=== PATIENT | male | born 1945 | race Caucasian/White ===

== ENCOUNTER → 2023-07-21 13:54 | Outpatient (REF) | payer SELFPAY ==
[2023-07-21 20:09] LABS: Urine Albumin Negative (Neg - Trace); Urine Bilirubin 1+ (Negative); Urine Character Clear (Clear); Urine Color Yellow; Urine Glucose Trace (Negative); Urine Ketone Negative (Negative); Urine Leukocyte Trace (Negative); Urine Nitrite Negative (Negative); Urine Occult Blood Negative (Negative); Urine Urobilinogen Negative (Neg - 1+)
[2023-07-21 20:16] LABS: Urine Amorphous Seen; Urine Calcium Oxalate Crystals Present; Urine Red Blood Cell None Seen /HPF (0-2); Urine Squamous Cell 0-2 /LPF (Few)
== END ==
LOC: OLABMERCHI 13:54
PROVIDERS: ATTENDING PHYSICIAN Nurse Practitioner Gerontology
DX: N39.0 Urinary tract infection, site not specified (principal)
CPT/HCPCS: 81003; 81015

== ENCOUNTER → 2024-06-14 10:08 | Outpatient (REF) | payer MEDICARE, SELFPAY ==
[2024-06-14 11:48] LABS: % Basophils 0.7 % (0-2); % Eosinophils 4.1 % (0-6); % Immature Granulocytes 0.5 % (0-0.5); % Lymphocytes 22.9 % (20.5-51.1); % Monocytes 10.3 % (1.7-9.3); % Neutrophils 61.5 % (42.2-75.2); Absolute Basophils 0.1 10^3/uL (0-0.2); Absolute Eosinophils 0.4 10^3/uL (0-0.7); Absolute Immature Granulocytes 0.1 10^3/uL (0-0.05); Absolute Lymphocytes 2.2 10^3/uL (1.2-3.4); Absolute Neutrophils 5.9 10^3/uL (1.4-6.5); Hematocrit 22.9 % (39.0-52.0); Hemoglobin 6.5 g/dL (13.0-18.0); Mean Corp Hgb Conc. 28.4 g/dL (33.0-37.0); Mean Corpuscular Hgb 22.8 pg (27.0-31.0); Mean Corpuscular Volume 80.4 fL (80.0-94.0); Mean Platelet Volume 11.2 fL (7.4-10.4); Nucleated Red Blood Cells % 0.2 % (-); Platelet Count 356 10^3/uL (130-400); Red Blood Cell Count 2.85 10^6/uL (4.70-6.10); Red Cell Dist. Width 17.8 % (11.5-14.5); White Blood Cell Count 9.6 10^3/uL (4.8-10.8)
[2024-06-14 11:51] LABS: ALT (SGPT) 17 U/L (0-50); AST (SGOT) 23 U/L (17-59); Albumin 3.3 g/dl (3.5-5.0); Alkaline Phosphatase 200 U/L (38-126); Blood Urea Nitrogen 20 mg/dl (9-20); Calcium 8.2 mg/dl (8.4-10.2); Carbon Dioxide 25 mmol/L (22-30); Chloride 106 mmol/L (98-107); Glucose 105 mg/dl (70-99); HDL Cholesterol 29 mg/dl; LDL Cholesterol, Calculated 54 mg/dl; Potassium 4.2 mmol/L (3.5-5.1); Sodium 138 mmol/L (135-145); Total Bilirubin 0.6 mg/dl (0.2-1.3); Total Cholesterol 105 mg/dl (50-199); Total Protein 5.7 g/dl (6.3-8.2); Triglyceride 112 mg/dl (10-149); Very Low Density Lipoprotein 22 mg/dl (0-30); eGFR > 60.00
[2024-06-14 12:08] LABS: Acanthocytes 1+; Anisocytosis 1+; Hypochromasia 1+; Normal RBC Morphology No; Ovalocytes 1+; Polychromasia 1+
[2024-06-14 12:09] LABS: Vitamin D, 25-OH*** 16.5 ng/mL (30-80)
[2024-06-14 12:22] LABS: PSA, Total - Screen 1.22 ng/ml (0.0-4.0); TSH 1.42 uIU/ml (0.47-4.68)
[2024-06-14 12:42] LABS: Vitamin B12 294 pg/ml (239-931)
[2024-06-14 13:34] LABS: Glycohemoglobin (HgbA1c) 6.5 % (4.0-5.6)
== END ==
LOC: OLABMERCHI 10:08
PROVIDERS: ATTENDING PHYSICIAN Hospitalist
DX: E11.9 Type 2 diabetes mellitus without complications (principal); I10 Essential (primary) hypertension; I25.119 Atherosclerotic heart disease of native coronary artery with unspecified angina pectoris; Z12.5 Encounter for screening for malignant neoplasm of prostate
CPT/HCPCS: 36415; 80053; 80061; 82306; 82607; 83036; 84443; 85025; G0103

== ENCOUNTER 2024-06-14 22:06 | Inpatient (IN) | payer MEDICARE, SELFPAY ==
[2024-06-14 17:48] VITALS: BP 127/58
[2024-06-14 18:02] LABS: % Basophils 0.7 % (0-2); % Eosinophils 2.8 % (0-6); % Immature Granulocytes 0.3 % (0-0.5); % Lymphocytes 22.6 % (20.5-51.1); % Monocytes 10.3 % (1.7-9.3); % Neutrophils 63.3 % (42.2-75.2); Absolute Basophils 0.1 10^3/uL (0-0.2); Absolute Eosinophils 0.3 10^3/uL (0-0.7); Absolute Lymphocytes 2.1 10^3/uL (1.2-3.4); Absolute Neutrophils 5.8 10^3/uL (1.4-6.5); Hematocrit 24.1 % (39.0-52.0); Hemoglobin 7.1 g/dL (13.0-18.0); Mean Corp Hgb Conc. 29.5 g/dL (33.0-37.0); Nucleated Red Blood Cells % 0.2 % (-); Platelet Count 384 10^3/uL (130-400); Red Blood Cell Count 3.09 10^6/uL (4.70-6.10); Red Cell Dist. Width 17.8 % (11.5-14.5); White Blood Cell Count 9.2 10^3/uL (4.8-10.8)
[2024-06-14 18:24] LABS: ALT (SGPT) 24 U/L (0-50); AST (SGOT) 33 U/L (17-59); Albumin 3.7 g/dl (3.5-5.0); Alkaline Phosphatase 192 U/L (38-126); Blood Urea Nitrogen 17 mg/dl (9-20); Calcium 8.5 mg/dl (8.4-10.2); Carbon Dioxide 22 mmol/L (22-30); Chloride 106 mmol/L (98-107); Glucose 140 mg/dl (70-99); Potassium 3.8 mmol/L (3.5-5.1); Sodium 139 mmol/L (135-145); Total Bilirubin 0.7 mg/dl (0.2-1.3); Total Protein 6.3 g/dl (6.3-8.2); eGFR > 60.00
--- NOTE | 2024-06-14 20:26 | ED.GENMED ---
History of Present Illness
General
Chief Complaint: Abnormal Lab Value
Source: patient, family (Son states he has no history of anemia) and ambulance crew
Exam Limitations: dementia
Time Seen by Provider: 06/14/24 19:33
Nursing documentation reviewed up to this point in time: agreed with
History of Present Illness
History of Present Illness:
79-year-old male presents Emergency Department due to low hemoglobin, which she has never had before. He takes eliquis for atrial fibrillation.
Past History
Past History
ED Past Medical History: Arrthythmia, CAD, HTN and Hypercholesterolemia
ED Past Surgical History: Cardiac (CABG)
Social History
Tobacco: Non-smoker
Alcohol: None
Drug: None
Living: long-term
Review of Systems
Review of Systems
Allergies reviewed?: Yes
All Other Systems: Not applicable
Constitutional: Reports fatigue
EENT: Reports no symptoms
Respiratory: Reports no symptoms
Cardiac: Reports no symptoms
ABD/GI: Reports no symptoms
: Reports no symptoms
Musculoskeletal: Reports no symptoms
Skin: Reports no symptoms
Neurological: Reports dizzy
Endocrine: Reports no symptoms
Hematologic/Lymphatic: Reports no symptoms
Psychiatric: Reports no symptoms
Phy Exam
Physical Exam
Physical Exam:
Physical Exam
General: no apparent distress, not acutely ill
Neck: supple. no meningeal signs. normal posterior pharynx
Heart: s1/s2 regular rate and rhythm, no murmur. equal radial
pulses.
HEENT: Pupils equal round reactive to light, EOMI, pale oral mucosa, pale conjunctiva
Lungs: no acute respiratory distress. clear bilaterally
Abdomen: normal bowel sounds. not tender. no CVAT
Rectal exam: Dark guaiac positive stool
Neuro: alert and oriented to person place. no focal neurological deficits cranial nerves II through XII intact
Skin: no rash
Psychiatric: well kept. interactive and cooperative
Extremities: no edema. no calf tenderness. negative homans. good distal pulses
Course
Orders/Labs/Results
Orders:
Orders
06/14/24 Dinner
NPO
Allow oral meds: Yes
Allow clear liquids: No
06/14/24 17:53
Type+Screen Urgent
Complete Blood Count/With Diff Urgent
Comprehensive Metabolic Panel Urgent
06/14/24 20:29
ABO2 Urgent
BBK Wristband Number:
Associate notified that ABO2 has been ordered: [id number]
Date: 06/14/24
Time: 18:12
Juvenile Justice Specialist ID: [id number]
06/14/24 20:31
Blood Bank Products [* Blood Bank Products] Urgent
's Orders: 1 unit prbc
Blood Bank Products: *Packed RBC Leuko(PRBC's)
Quantity: 1
Transfuse Today: Yes
Reason: Bleeding
Pantoprazole [Protonix IV] 80 mg IV NOW STA
06/14/24 21:26
Admit/Transfer Patient As Directed
Co-Sign Provider:
Level of Care: Inpatient admission
Assign to:: Telemetry
Physician / Group: Eliel Lloyd
Diagnosis: GI bleed
Reason for Telemetry: Arrhythmia
Date to Stop Telemetry: 06/17/24
Time to Stop Telemetry: 11:00
Reason for Hospitalization: GI bleed
Expected length of stay greater than two midnights?: Yes
ELOS- Estimated Length of Stay in days: 3
I certify the patient meets the requirements for IP care: Yes
PRN Pain Medication Management As Directed
May give lesser potent ordered pain med per pt: Yes
preference::
Protocol:: Medication orders for pain may be administered in a
manner that supports deferring to patient preference
when the pt is:
- Requesting an ordered lesser potent pain medication.
Least to most potent pain medications are defined
as: acetaminophen < NSAID < tramadol < opioids
(morphine, oxycodone, hydromorphone).
- Requesting a lesser dose of the same medication IF
ORDERED.
- Requesting a less intrusive route of administration
if both routes are prescribed by the provider (PO <
IV).
06/14/24 21:27
Code Status As Directed
Resuscitation Status: Full Code
06/14/24 22:34
H&H Q6H
Acetaminophen [Tylenol] 650 mg PO Q4HPRN PRN
Atorvastatin [Lipitor] 40 mg PO HS
Escitalopram Oxalate [Lexapro] 15 mg PO HS
06/14/24 22:34
Activity As Directed
Activity Level: Out of Bed-Early Mobility
INT (Intravenous Needle Therapy) As Directed
Comment: Place 2 IV catheters of the largest bore possible until stable
Orthostatic Vital Signs As Directed
Orthostatic VS Frequency: Now
Comment: then every four hours for twenty-four hours
Pneumatic Compression Sleeves As Directed
Type: Knee high
Vital Signs As Directed
Frequency: Per unit guidelines
DX Deep Vein Thrombosis Video Routine
06/15/24 04:34
H&H Q6H
06/15/24 06:00
Basic Metabolic Panel IN AM
Complete Blood Count/No Diff IN AM
06/15/24 08:00
Metoprolol Xl [Toprol Xl] 25 mg PO DAILY
Pantoprazole [Protonix IV] 40 mg IV BID
06/15/24 10:34
H&H Q6H
06/17/24 11:00
DC Protocol for Telemetry ONCE
Abnormal Lab Results
06/14/24
17:53
RBC 3.09 L 10^6/uL
(4.70-6.10)
Hgb 7.1 L g/dL
(13.0-18.0)
Hct 24.1 L %
(39.0-52.0)
MCV 78.0 L fL
(80.0-94.0)
MCH 23.0 L pg
(27.0-31.0)
MCHC 29.5 L g/dL
(33.0-37.0)
RDW 17.8 H %
(11.5-14.5)
Absolute Monos (auto) 1.0 H 10^3/uL
(0.1-0.6)
Monocytes % 10.3 H %
(1.7-9.3)
Glucose 140 H mg/dl
(70-99)
Alkaline Phosphatase 192 H U/L
(38-126)
Crossmatch IS Only See Detail
06/14/24 17:53
06/14/24 17:53
Vital Signs
Initial and Last Documented VS:
Initial Vital Signs
Temp Pulse Resp BP Pulse Ox
97.8 F 62 18 127/58 99
06/14/24 17:48 06/14/24 17:48 06/14/24 17:48 06/14/24 17:48 06/14/24 17:48
Last Documented Vital Signs
Temp Pulse Resp BP Pulse Ox
97.8 F 62 16 127/58 92
06/14/24 17:48 06/14/24 22:15 06/14/24 22:15 06/14/24 17:48 06/14/24 22:15
MDM/Problems Addressed
Differential Diagnosis Includes:
Anemia, GI bleed
MDM/Problems Addressed:
79-year-old male with GI bleed, unclear if upper versus lower, suspect upper. 1 unit of packed red blood cells ordered. IV Protonix given. Admit to hospitalist.
Chronic conditions affecting care: CAD and Arrhythmia
Acute Exacerbation and/or Progression of Chronic Illness: Arrhythmia
*Pulse Oximetry
Patient hypoxic: no
*Critical Care Note
Total Time (30-74mins, 75-104mins- exclusive of procedures): 30
comment:
Critical care statement: A total of 30 minutes of critical care time was provided for this patient. This includes management of unstable vital signs, evaluation of the patient at bedside, reviewing the patient's pertinent medical records, discussion
with consultants, review of old EKGs and review of pertinent medical records. This time with separate from time utilized to perform the aforementioned documented procedures
Patient Management
Social determinants of health affecting care: Living situation and Strong social support
Discussion with other providers: Hospitalist
Escalation/DeEscalation of care consider admission/obs:
Admit indicated
ED Attending Note
-
Portions of this chart may have been created with voice recognition software.� Occasional wrong word or��sound alike� substitutions may have occurred due to the inherent limitations of voice recognition software.
Discharge Plan
Departure
Patient Disposition: Admit
Date of Disposition: 06/14/24
Time of Disposition: 20:29
Admit to: Telemetry
Presentation/result/management discussed w/ accepting MD/DO: Hospitalist
Patient with high blood pressure during this ER visit?: Yes
Condition: Fair
Discharge Problem:
Acute GI bleeding
Interventions
Interventions:
*Risk Screen - Suicide Last Done: 06/14/24 17:48
*General Assessment Last Done: 06/14/24 17:45
*Neglect/Abuse Screening Last Done: 06/14/24 17:48
*Nursing Disposition Last Done: 06/14/24 22:21
Discharge Date and Time
Discharge Date/Time: 06/14/24 22:21
--- NOTE | 2024-06-14 20:45 | HPS.HSE ---
Addendum entered and electronically signed by Eliel Lloyd DO 06/14/24 22:50:
Patient seen and examined independently. Agree with findings and plan as set forth by DEBI Zayas.
Patient is an 79y M with PMH significant for ASCVD, hypertension and dementia who presents to ED for evaluation of anemia. Patient had routine labs done this AM and was called and advised that his Hgb was low and to report to the ED for
evaluation. History obtained from patient and his son in the ED. Patient denies any current complaints including SOB, dizziness, abdominal pain, N/V/D, etc. Patient did apparently have some issues with lightheadedness and low BP in the past few
weeks and his BP medication regimen was adjusted as a result. He states that he has been feeling better since that time.
Ass:
Subacute Blood Loss Anemia
Heme Positive Stools
Benign Hypertension
ASCVD
Paroxysmal Atrial Fibrillation
Senile Dementia
Plan:
Admit for further evaluation and treatment.
PRBCs transfusion ordered in the ED.
Follow for improvement in H&H.
GI evaluation for possible endoscopic examination.
IV PPI.
Monitor for any evidence of gross bleeding.
Hold Eliquis (last dose AM).
Original Note:
Family Physician
-
Family Physician: Ashwini Sanchez, DO
Chief Complaint
-
abnormal lab values
History of Present Illness
Patient is a 79-year-old male with past medical history significant for ASCVD, essential hypertension, hyperlipidemia, cognitive disorder and atrial fibrillation who presented to [facility] ED for evaluation of abnormal out patient labs. Patient resides
at [facility] and had routine lab work showing a hgb 6.5 this morning, facility transferred patient to ED for evaluation and treatment. Patient is poor historian, son at bedside assisting with HPI. Patient reports generally he is well able to walk
independently and complete ADLs. Patient does report having episodes of dizziness when standing and walking intermittently recently had irbesartan discontinued for low blood pressure. Patient does not recall having any recent dark stools. He denies
any recent illness, cough, fever, chills, chest pain, cough, nausea, vomiting, constipation, diarrhea or urinary symptoms.
Medical History
Past Medical History
Past Medical History: Reports Other
Additional Past Medical History:
ASCVD
essential hypertension
hyperlipidemia
cognitive disorder
atrial fibrillation
Past Surgical History: Reports Other
Additional Past Surgical History:
ACL repair
cardiac stents
cholecystectomy
Social History
Tobacco: Non-smoker
Living: Assisted Living ([facility])
Family History
Family History: Other (Father: CAD; Mother: Alzheimer's and TB)
Allergies / Home Medications
Allergies reflects when Allergies were last updated in [employer].
Home Medications with original date entered in [employer]
Allergy/Medication List:
Allergies
Allergy/AdvReac Type Severity Reaction Status Date / Time
Sulfa (Sulfonamide Allergy Unknown Verified 06/14/24 17:45
Antibiotics)
Home Medications
acetaminophen 325 mg tablet 650 mg PO Q4HPRN PRN mild pain 06/14/24
apixaban 5 mg tablet (Eliquis) 5 mg PO BID 06/14/24
atorvastatin 40 mg tablet 40 mg PO HS 06/14/24
escitalopram oxalate 10 mg tablet 15 mg PO HS 06/14/24
metoprolol succinate 25 mg tablet,extended release 24 hr 25 mg PO DAILY 06/14/24
omeprazole 20 mg capsule,delayed release 20 mg PO DAILY 06/14/24
Review of Systems
-
History Source: Patient and Family
Constitutional: Reports Other (abnormal out patient labs )
EENT: Reports No Symptoms
Respiratory: Reports No Symptoms
Cardiac: Reports No Symptoms
Abdomen/GI: Reports No Symptoms
: Reports No Symptoms
Musculoskeletal: Reports No Symptoms
Skin: Reports No Symptoms
Neurological: Reports No Symptoms
Endocrine: Reports No Symptoms
Hematologic/Lymphatic: Reports No Symptoms
Psych: Reports No Symptoms
Physical Exam
Vital Signs
Vital Signs
Temp Pulse Resp BP Pulse Ox
97.8 F 62 18 127/58 99
06/14/24 17:48 06/14/24 17:48 06/14/24 17:48 06/14/24 17:48 06/14/24 17:48
Physical Exam
General: Well Developed, Well Nourished, No Apparent Distress, Comfortable, Conversant and Appears Chronically Ill
HEENT: NormoCephalic, Moist mucous membranes, Atraumatic, Nose Appears Normal, Ears Appear Normal and Hearing Impaired
Respiratory: Clear
Cardiac: S1/S2 and Regular Rhythm; No Murmur or Rub
Breast: Deferred by me
GI: Soft, Non Tender, Non Distended and Normal Bowel Sounds; No Organomegaly
Rectal: Hem Positive
Genito-urinary: Deferred by me
Musculoskeletal: No Clubbing, No Cyanosis and No Edema
Skin: IV/Catheter Site
Neuro: Awake, Alert, AO x 3 and Nonfocal/grossly intact
Psych: Calm and Intact Judgment/Insight
Laboratory Results
-
06/14/24 17:53
06/14/24 17:53
Laboratory Results
Total Bilirubin 0.7 mg/dl (0.2-1.3) 06/14/24 17:53
AST 33 U/L (17-59) 06/14/24 17:53
ALT 24 U/L (0-50) 06/14/24 17:53
Alkaline Phosphatase 192 U/L (38-126) H 06/14/24 17:53
Data Reviewed
-
Lab Data: Labs Reviewed by me (hgb 7.1, hct 24.1, alk phos 192)
Impression/Plan
-
IMPRESSION/PLAN:
#GI bleed
hgb 7.1, hct 24.1
- Admit to telemetry
- Consult GI
- Transfuse for hgb <7.0
- monitor H/H
- IV Protonix BID
- orthostatic VS
#essential hypertension
- continue metoprolol
#hyperlipidemia
- continue atorvastatin
#cognitive disorder
- continue escitalopram
#atrial fibrillation
- hold Eliquis in setting of GI bleed
- continue metoprolol
#ASCVD
s/p cardiac stents
Code status: Full code
DVT prophylaxis: SCDs
[2024-06-14] MEDS: PROTONIX IV 80 MG IV (21:03)
[2024-06-14 22:38] VITALS: BP 119/54; BP 122/64; BP 123/50; PULSE 62; PULSE 66; PULSE 72
[2024-06-14 22:49] VITALS: BMI 24.5
[2024-06-14 23:27] LABS: Iron 21 ug/dl (49-181)
[2024-06-14 23:37] LABS: Percent Saturation 5 % (20-50); Total Iron Binding Capacity 368 ug/dl (261-462)
[2024-06-15] VITALS (9 sets, daily range): BP systolic 96–129; BP diastolic 48–69; PULSE 62–68
[2024-06-15 00:05] LABS: Hemoglobin 6.5 g/dL (13.0-18.0)
[2024-06-15] MEDS: LEXAPRO 15 MG PO ×2 (00:20→22:49)
[2024-06-15] MEDS: LIPITOR 40 MG PO ×2 (00:20→22:51)
--- NOTE | 2024-06-15 05:57 | PTCARENOTE ---
06/14: Pt transported to via stretcher. pt walked to bed x1 assist. family at bedside. pt poor historian. Vss. AAOX3. Pt oriented to unit. callbell within reach.
[2024-06-15 06:01] LABS: Hemoglobin 7.5 g/dL (13.0-18.0); Mean Corpuscular Hgb 23.7 pg (27.0-31.0); Mean Corpuscular Volume 78.9 fL (80.0-94.0); Mean Platelet Volume 10.6 fL (7.4-10.4); Platelet Count 348 10^3/uL (130-400); Red Blood Cell Count 3.17 10^6/uL (4.70-6.10); Red Cell Dist. Width 17.7 % (11.5-14.5); White Blood Cell Count 8.4 10^3/uL (4.8-10.8)
[2024-06-15 06:25] LABS: Blood Urea Nitrogen 18 mg/dl (9-20); Calcium 8.4 mg/dl (8.4-10.2); Carbon Dioxide 23 mmol/L (22-30); Chloride 108 mmol/L (98-107); Estimated Creatinine Clearance 72 ml/min; Glucose 93 mg/dl (70-99); Sodium 139 mmol/L (135-145); eGFR > 60.00
[2024-06-15] MEDS: PROTONIX IV 40 MG IV ×2 (08:53→20:31)
[2024-06-15] MEDS: NSS (PRESERVATIVE FREE) 10 ML IV ×2 (08:53→20:30)
[2024-06-15] MEDS: TOPROL XL PO (08:53)
--- NOTE | 2024-06-15 09:35 | CON.GI ---
Consultation
-
Date/Time Consultation Requested: 06/14/24
Date/Time Consultation Performed: 06/15/24
Requesting Provider: Pattie Moreno
Performing Provider: Julia Brooks
Reason for Consultation: Anemia
Medical History
Chief Complaint / HPI
Chief Complaint: anemia
History of Present Illness:
Burke Watts is an 79-year-old male with past medical history hypertension, A-fib on Eliquis, hyperlipidemia, coronary artery disease, cognitive disorder admitted after outpatient labs showed evidence of anemia. He had routine lab work showing
a hemoglobin of 6.5, he was then transferred from his [facility] facility to the ED for further evaluation and workup. He denies any symptomatic anemia leading up to his admission. He reports moving his bowels regularly, denies any melena,
hematochezia, change in bowel habits. He reports prior colonoscopies, last 1 of which was probably about 5 years ago said he had small polyps in the past. He is unable to tell me where he had his prior colonoscopies done or to perform them.
Denies family history of GI malignancy. He reports his weight and appetite have been stable. Last dose of Eliquis was 4/3 in AM. Denies regular use of NSAIDs.
Hgb 6.5 --> 7.1 --> 6.5 --> 7.5
MCV 78
Plt 348
BUN 18/Cr. 0.7
Tbili 0.6
AST 23
ALT 17
Alk phos 200 --> 192
Iron 21
TIBC 368
%sat 5
Past Medical History
Past Medical History: Other (hypertension, A-fib on Eliquis, hyperlipidemia, coronary artery disease, cognitive disorder)
Past Surgical History: Other (ACL repair, cholecystectomy)
Social History
Tobacco: Non-Smoker
Living: Assisted Living
Family History
Family History: Reviewed & Not Pertinent
Allergies / Home Medications
Allergy/AdvReac Type Severity Reaction Status Date / Time
Sulfa (Sulfonamide Allergy Unknown Verified 06/14/24 17:45
Antibiotics)
�Medication �Instructions �Recorded
acetaminophen 325 mg tablet 650 mg PO Q4HPRN PRN mild pain 06/14/24
apixaban 5 mg tablet (Eliquis) 5 mg PO BID 06/14/24
atorvastatin 40 mg tablet 40 mg PO HS 06/14/24
escitalopram oxalate 10 mg tablet 15 mg PO HS 06/14/24
metoprolol succinate 25 mg 25 mg PO DAILY 06/14/24
tablet,extended release 24 hr
omeprazole 20 mg capsule,delayed 20 mg PO DAILY 06/14/24
release
Review of Systems
-
History Source: Patient
All other systems: A 12 pt ROS was Negative except as stated above in HPI
Vital Signs
Temp Pulse Resp BP Pulse Ox
98.2 F 60 16 117/59 96
06/15/24 07:00 06/15/24 07:00 06/15/24 07:00 06/15/24 07:00 06/15/24 07:00
Physical Exam
Exam
GENERAL: In no acute distress, appears comfortable
ABDOMEN: +BS; soft, non-tender and non-distended; no rebound or guarding
Results
WBC 8.4 10^3/uL (4.8-10.8) 06/15/24 05:42
Hgb 7.5 g/dL (13.0-18.0) L 06/15/24 05:42
Hgb Cancelled 06/15/24 05:42
Hct 25.0 % (39.0-52.0) L 06/15/24 05:42
Hct Cancelled 06/15/24 05:42
MCV 78.9 fL (80.0-94.0) L 06/15/24 05:42
Plt Count 348 10^3/uL (130-400) 06/15/24 05:42
Absolute Neuts (auto) 5.8 10^3/uL (1.4-6.5) 06/14/24 17:53
Sodium 139 mmol/L (135-145) 06/15/24 05:42
Potassium 4.0 mmol/L (3.5-5.1) 06/15/24 05:42
Chloride 108 mmol/L (98-107) H 06/15/24 05:42
Carbon Dioxide 23 mmol/L (22-30) 06/15/24 05:42
BUN 18 mg/dl (9-20) 06/15/24 05:42
Creatinine 0.7 mg/dL (0.7-1.3) 06/15/24 05:42
Calcium 8.4 mg/dl (8.4-10.2) 06/15/24 05:42
Total Bilirubin 0.7 mg/dl (0.2-1.3) 06/14/24 17:53
AST 33 U/L (17-59) 06/14/24 17:53
ALT 24 U/L (0-50) 06/14/24 17:53
Alkaline Phosphatase 192 U/L (38-126) H 06/14/24 17:53
Diagnostic Image Results:
Prior GI Procedures:
EGD:
Colonoscopy:
Assessment / Plan
-
79-year-old male with past medical history hypertension, A-fib on Eliquis, hyperlipidemia, coronary artery disease, cognitive disorder? admitted with asymptomatic iron deficiency anemia.
#Microcytic, Iron deficiency anemia
-Hb 6.5 --> 7.1 --> 6.5 --> 7.5, he has only received a total of 1 unit of PRBC per my review so it does appear he has responded appropriately
-2 large bore peripheral gauge IVs
-active T&C, transfuse for Hgb <7
-PPI IV BID
-brown, hemoccult positive stool, no evidence of active/brisk GI bleeding
-Iron studies c/w YONG, give IV iron while inpatient
-hold eliquis (last dose 4/3 in AM)
-Plan for EGD/Colonoscopy on Tuesday, for low residue diet now
-recommend starting once daily miralax now in anticipation of starting bowel prep on tuesday
#Elevated alkaline phosphatase
-check GGT
-alk phos isoenzymes
-based on labs, will determine if abdominal US is needed
-
-
Thank you for consultation and allowing me to participate in the patient's care. Please call the master control engineer GI physician during the after hours with any questions or concerns.
--- NOTE | 2024-06-15 10:31 | W.PN.HOSP.TC ---
Addendum entered and electronically signed by Kofi Soliz MD 06/15/24 11:12:
repeat Hgb 8.1, can hold on further transfusion for now
Original Note:
Today's Communication/Plan
-
await repeat H&H for possible transfusion of 2nd unit
Assessment / Plan
Assessment / Plan
#GI bleed
hgb 7.1, hct 24.1
- Admit to telemetry
- Consult GI
- hgb 6.5-->7.1-->6.5-transfused 1 unit PRBC-->7.5
- monitor H/H, await next study
- IV Protonix BID
- orthostatic VS
Fe sat 5%, will order IV Fe and check Ferritin
with significant microcytic hypochromic indices, GI bleeding has a significant component of subacute. Agree with IV Fe infusion
GI planning to do EGD/[place] on Tuesday, okay for low res diet now and has been ordered
#essential hypertension
- continue metoprolol
#hyperlipidemia
- continue atorvastatin
#cognitive disorder
- continue escitalopram, pt lives at [facility] unit
#atrial fibrillation
- hold Eliquis in setting of GI bleed
- continue metoprolol
#ASCVD
s/p cardiac stents
call placed and reviewed with son, Juan 06/15
Code status: Full code
DVT prophylaxis: SCDs
Anticipated Discharge: > 48 hours
Subjective/Interval History
-
Date of Service: June 15, 2024
Awake, alert, conversant
Objective Data
-
Labs:
Laboratory Results
06/14/24 06/15/24 06/15/24
23:34 05:42 05:42
WBC 8.4
Hgb 6.5 L* Cancelled 7.5 L
Hct 22.0 L Cancelled
Plt Count
Sodium
Potassium
Chloride
Carbon Dioxide
BUN
Creatinine
Glucose
Calcium
06/15/24 06/15/24
05:42 10:34
WBC
Hgb Pending
Hct 25.0 L Pending
Plt Count 348
Sodium 139
Potassium 4.0
Chloride 108 H
Carbon Dioxide 23
BUN 18
Creatinine 0.7
Glucose 93
Calcium 8.4
Vital Signs:
Vital Signs
Temp Pulse Resp BP Pulse Ox
98.2 F 60 16 117/59 96
06/15/24 07:00 06/15/24 07:00 06/15/24 07:00 06/15/24 07:00 06/15/24 08:00
I&O
06/14/24 06/15/24 06/16/24
06:59 06:59 06:59
Intake Total 250 / 250
Balance 250 / 250
Review of Systems
-
History Source: Patient and Family (call placed and reviewed with son, Juan)
Constitutional: Denies Fever
EENT: Reports No Symptoms Reported
Respiratory: Reports No Symptoms
Cardiac: Reports No Symptoms; Denies Chest Pain
Abdomen/GI: Reports Black Stools (pt is not aware of having); Denies Abdominal Pain, Nausea, Vomiting or Bloody Stools (pt is not aware of having)
Physical Exam
-
General: Well Developed, Well Nourished and No Apparent Distress
HEENT: Normocephalic, Atraumatic and Moist Mucous Membranes
Respiratory: Clear to Auscultation; Negative Wheezes, Rales or Rhonchi
Cardiac: Regular Rhythm and S1/S2
GI: Soft, Nontender and Nondistended
Musculoskeletal: No Clubbing, No Cyanosis and No Edema
Skin: Warm and Dry
[2024-06-15 10:53] LABS: Hematocrit 26.3 % (39.0-52.0); Hemoglobin 8.1 g/dL (13.0-18.0)
[2024-06-15] MEDS: MIRALAX 17 GRAMS PO (11:14)
[2024-06-15 12:55] LABS: Ferritin 6.6 ng/ml (17.9-464.0)
--- NOTE | 2024-06-15 13:50 | CM ---
Patient seen bedside, pleasant.
Some confusion with conversation.
Patient thought he drove here, and could drive home.
Spoke with son via phone, patient is currently in personal care, looking to move to memory care.
Patient has a cane for ambulation but doesn't always use.
Patient ambulates independently.
Spoke with Rossy from [place]- [facility] information.
she is not sure if he will be in Personal care of Memory care on return.
Son will transport.
plan is for EGD/Colon on Tuesday
PCP: Laura
Pharmacy: [facility]
Plan: back to [facility] vs Memory Care
Neymar Wilson
Report# [phone]
[2024-06-15] MEDS: FERRLECIT 110 MG IV (14:20)
[2024-06-16 03:22] VITALS: BP 146/64
[2024-06-16 07:00] VITALS: BP 121/69
[2024-06-16 07:39] LABS: Alkaline Phosphatase, Total 203 U/L (38-126); Blood Urea Nitrogen 21 mg/dl (9-20); Calcium 8.6 mg/dl (8.4-10.2); Carbon Dioxide 23 mmol/L (22-30); Chloride 110 mmol/L (98-107); Estimated Creatinine Clearance 72 ml/min; GGTP 13 U/L (15-73); Glucose 103 mg/dl (70-99); Potassium 3.9 mmol/L (3.5-5.1); Sodium 139 mmol/L (135-145); eGFR > 60.00
[2024-06-16 07:40] LABS: % Basophils 0.8 % (0-2); % Eosinophils 3.8 % (0-6); % Immature Granulocytes 0.4 % (0-0.5); % Lymphocytes 20.3 % (20.5-51.1); % Monocytes 8.9 % (1.7-9.3); % Neutrophils 65.8 % (42.2-75.2); Absolute Basophils 0.1 10^3/uL (0-0.2); Absolute Eosinophils 0.4 10^3/uL (0-0.7); Absolute Monocytes 0.9 10^3/uL (0.1-0.6); Absolute Neutrophils 6.4 10^3/uL (1.4-6.5); Hematocrit 26.2 % (39.0-52.0); Mean Corp Hgb Conc. 30.5 g/dL (33.0-37.0); Mean Corpuscular Hgb 23.3 pg (27.0-31.0); Mean Corpuscular Volume 76.4 fL (80.0-94.0); Mean Platelet Volume 10.7 fL (7.4-10.4); Nucleated Red Blood Cells % 0.2 % (-); Platelet Count 363 10^3/uL (130-400); Red Blood Cell Count 3.43 10^6/uL (4.70-6.10); Red Cell Dist. Width 18.2 % (11.5-14.5); White Blood Cell Count 9.7 10^3/uL (4.8-10.8)
--- NOTE | 2024-06-16 08:54 | W.PN.GI.CBS2 ---
Today's Communication / Plan
-
Bowl prep and clear liquids starting tomorrow, EGD and Colonoscopy Tuesday. Hold Eliquis. Elevated alk phos workup in progress
Assessment / Plan
-
79-year-old male with past medical history hypertension, A-fib on Eliquis, hyperlipidemia, coronary artery disease, cognitive disorder? admitted with asymptomatic iron deficiency anemia.
#Microcytic, Iron deficiency anemia
-Hb 6.5 --> 7.1 --> 6.5 --> 7.5--> 8.1 --> 8.0, he has only received a total of 1 unit of PRBC
-2 large bore peripheral gauge IVs
-active T&C, transfuse for Hgb <7
-PPI IV BID
-brown, hemoccult positive stool, no evidence of active/brisk GI bleeding
-Iron studies c/w YONG, give IV iron while inpatient
-hold eliquis (last dose 4/3 in AM)
-Plan for EGD/Colonoscopy on Tuesday, okay for low residue diet now; will start clear liquids tomorrow plus prep
-daily miralax and begin bowel prep tomorrow
#Elevated alkaline phosphatase
-alk phos 200 --> 192 --> 203
-GGT 13 (low)
-alk phos isoenzymes pending; low GGT suggestive of non-GI etiology of elevated alk phos, could be related to low Vit. D-- recommend repletion per primary team
-based on labs, will determine if abdominal US is needed
Subjective
Subjective
Date of Service: June 16, 2024
Patient seen in follow-up. No overnight events. Hgb 8.0 this morning, no signs of active GI bleeding
Objective
Data Reviewed
Laboratory Data:
Laboratory Results
06/16/24 06:35
06/16/24 06:35
Laboratory Results
Total Bilirubin 0.7 mg/dl (0.2-1.3) 06/14/24 17:53
AST 33 U/L (17-59) 06/14/24 17:53
ALT 24 U/L (0-50) 06/14/24 17:53
Alkaline Phosphatase 192 U/L (38-126) H 06/14/24 17:53
Vital Signs and I&O:
Vital Signs
Temp Pulse Resp BP Pulse Ox
97.8 F 72 18 121/69 93
06/16/24 07:00 06/16/24 07:00 06/16/24 07:00 06/16/24 07:00 06/16/24 07:00
I&O
06/15/24 06/16/24 06/17/24
06:59 06:59 06:59
Intake Total 250 / 250 480 / 480
Balance 250 / 250 480 / 480
Physical Exam
Physical Exam
HEENT: Anicteric and Moist mucous membranes
GI: Soft, Non Distended, Non Tender and Normal Bowel Sounds
--- NOTE | 2024-06-16 09:02 | W.PN.HOSP.TC ---
Today's Communication/Plan
-
Follow Hgb
[place]/EGD on Tuesday. Pt on low residue diet
Assessment / Plan
Assessment / Plan
#GI bleed
hgb 7.1, hct 24.1
- Admit to telemetry
- Consult GI
- hgb 6.5-->7.1-->6.5-transfused 1 unit PRBC-->7.5-->8.1-->8.0
- monitor H/H, await next study
- IV Protonix BID
- orthostatic VS
Fe sat 5%, Ferritin 6.6, ordered IV Fe
with significant microcytic hypochromic indices, GI bleeding has a significant component of subacute. Agree with IV Fe infusion
GI planning to do EGD/[place] on Tuesday, okay for low res diet now and has been ordered
#essential hypertension
- continue metoprolol
#hyperlipidemia
- continue atorvastatin
#cognitive disorder
- continue escitalopram, pt lives at [facility] unit
#atrial fibrillation
- hold Eliquis in setting of GI bleed
- continue metoprolol
#ASCVD
s/p cardiac stents
call placed and reviewed with son, Juan 06/16
Code status: Full code
DVT prophylaxis: SCDs
Anticipated Discharge: > 48 hours
Subjective/Interval History
-
Date of Service: June 16, 2024
Awake, alert, in good spirits
Objective Data
-
Labs:
Laboratory Results
06/16/24
06:35
WBC 9.7
Hgb 8.0 L
Hct 26.2 L
Plt Count 363
Sodium 139
Potassium 3.9
Chloride 110 H
Carbon Dioxide 23
BUN 21 H
Creatinine 0.7
Glucose 103 H
Calcium 8.6
Vital Signs:
Vital Signs
Temp Pulse Resp BP Pulse Ox
97.8 F 72 18 121/69 93
06/16/24 07:00 06/16/24 07:00 06/16/24 07:00 06/16/24 07:00 06/16/24 07:00
I&O
06/15/24 06/16/24 06/17/24
06:59 06:59 06:59
Intake Total 250 / 250 480 / 480
Balance 250 / 250 480 / 480
Review of Systems
-
History Source: Patient and Family (call placed and reviewed with son, Juan)
Constitutional: Denies Fever
EENT: Reports No Symptoms Reported
Respiratory: Reports No Symptoms
Cardiac: Reports No Symptoms; Denies Chest Pain
Abdomen/GI: Reports Black Stools (pt is not aware of having); Denies Abdominal Pain, Nausea, Vomiting or Bloody Stools (pt is not aware of having)
Physical Exam
-
General: Well Developed, Well Nourished and No Apparent Distress
HEENT: Normocephalic, Atraumatic and Moist Mucous Membranes
Respiratory: Clear to Auscultation; Negative Wheezes, Rales or Rhonchi
Cardiac: Regular Rhythm and S1/S2
GI: Soft, Nontender and Nondistended
Musculoskeletal: No Clubbing, No Cyanosis and No Edema
Skin: Warm and Dry
[2024-06-16] MEDS: PROTONIX IV 40 MG IV ×2 (09:17→20:05)
[2024-06-16] MEDS: TOPROL XL 25 MG PO (09:17)
[2024-06-16] MEDS: MIRALAX 17 GRAMS PO (09:17)
[2024-06-16] MEDS: NSS (PRESERVATIVE FREE) 10 ML IV ×2 (09:18→20:05)
[2024-06-16 11:00] VITALS: BP 103/62
[2024-06-16 13:41] LABS: Alk Phos After Heat 151; Alkaline Phosphatase Percent 74.38
[2024-06-16] MEDS: FERRLECIT 110 MG IV (14:44)
[2024-06-16 15:00] VITALS: BP 118/70
[2024-06-16 19:28] VITALS: BP 122/63
[2024-06-16] MEDS: LIPITOR 40 MG PO (22:26)
[2024-06-16] MEDS: LEXAPRO 15 MG PO (22:26)
[2024-06-16 23:11] VITALS: BP 109/46
[2024-06-17 03:10] VITALS: BP 119/60
[2024-06-17 07:00] VITALS: BP 107/47
[2024-06-17 07:37] LABS: % Basophils 0.6 % (0-2); % Lymphocytes 18.2 % (20.5-51.1); % Monocytes 10.7 % (1.7-9.3); % Neutrophils 64.5 % (42.2-75.2); Absolute Basophils 0.1 10^3/uL (0-0.2); Absolute Eosinophils 0.6 10^3/uL (0-0.7); Absolute Immature Granulocytes 0.1 10^3/uL (0-0.05); Absolute Lymphocytes 2.1 10^3/uL (1.2-3.4); Absolute Monocytes 1.2 10^3/uL (0.1-0.6); Absolute Neutrophils 7.5 10^3/uL (1.4-6.5); Hematocrit 26.4 % (39.0-52.0); Hemoglobin 7.9 g/dL (13.0-18.0); Mean Corp Hgb Conc. 29.9 g/dL (33.0-37.0); Mean Corpuscular Hgb 23.8 pg (27.0-31.0); Mean Corpuscular Volume 79.5 fL (80.0-94.0); Nucleated Red Blood Cells % 0.3 % (-); Platelet Count 367 10^3/uL (130-400); Red Blood Cell Count 3.32 10^6/uL (4.70-6.10); Red Cell Dist. Width 18.6 % (11.5-14.5); White Blood Cell Count 11.6 10^3/uL (4.8-10.8)
[2024-06-17] MEDS: TOPROL XL 25 MG PO (08:03)
[2024-06-17] MEDS: PROTONIX IV 40 MG IV ×2 (08:04→20:59)
[2024-06-17] MEDS: MIRALAX 17 GRAMS PO (08:04)
[2024-06-17] MEDS: NSS (PRESERVATIVE FREE) 10 ML IV ×2 (08:04→20:59)
--- NOTE | 2024-06-17 08:46 | W.PN.GI.CBS2 ---
Today's Communication / Plan
-
EGD/Colonoscopy tomorrow. NPO PMN. Nonurgent Abdominal US for elevated alk phos (okay to defer as outpatient if needed)
Assessment / Plan
-
79-year-old male with past medical history hypertension, A-fib on Eliquis, hyperlipidemia, coronary artery disease, cognitive disorder? admitted with asymptomatic iron deficiency anemia.
#Microcytic, Iron deficiency anemia
-Hb 6.5 --> 7.1 --> 6.5 --> 7.5--> 8.1 --> 8.0 -->7.9, he has only received a total of 1 unit of PRBC
-2 large bore peripheral gauge IVs
-active T&C, transfuse for Hgb <7
-PPI IV BID
-brown, hemoccult positive stool, no evidence of active/brisk GI bleeding
-Iron studies c/w YONG, give IV iron while inpatient
-hold eliquis (last dose 4/3 in AM)
-Plan for EGD/Colonoscopy tomorrow
-bowel prep today
-Clear liquid diet, NPO past midnight
#Elevated alkaline phosphatase
-alk phos 200 --> 192 --> 203
-GGT 13 (low)-low GGT suggestive of non-GI etiology of elevated alk phos, could be related to low Vit. D-- recommend repletion per primary team
-fractionation high consistent with liver, intestines or combination of both
-5'nucleotidase pending
-recommend abdominal US- would defer until following EGD/colonoscopy or as outpatient (do not need to keep him in hospital to perform this test) to complete workup.
Subjective
Subjective
Date of Service: June 17, 2024
Patient seen in follow-up, no overnight events. EGD/Colonoscopy tomorrow.
Objective
Data Reviewed
Laboratory Data:
Laboratory Results
06/17/24 06:53
06/16/24 06:35
Laboratory Results
Total Bilirubin 0.7 mg/dl (0.2-1.3) 06/14/24 17:53
AST 33 U/L (17-59) 06/14/24 17:53
ALT 24 U/L (0-50) 06/14/24 17:53
Alkaline Phosphatase 192 U/L (38-126) H 06/14/24 17:53
Vital Signs and I&O:
Vital Signs
Temp Pulse Resp BP Pulse Ox
98.1 F 72 16 107/47 94
06/17/24 07:00 06/17/24 08:03 06/17/24 07:00 06/17/24 08:03 06/17/24 07:00
I&O
06/16/24 06/17/24 06/18/24
06:59 06:59 06:59
Intake Total 480 / 480 900 / 900
Balance 480 / 480 900 / 900
Physical Exam
Physical Exam
HEENT: Anicteric and Moist mucous membranes
GI: Soft, Non Distended, Non Tender and Normal Bowel Sounds
--- NOTE | 2024-06-17 08:56 | W.PN.HOSP.TC ---
Today's Communication/Plan
-
clear liquid diet
for EGD and colo tomorrow\\
follow Hgb
Assessment / Plan
Assessment / Plan
#GI bleed
hgb 7.1, hct 24.1
- Admit to telemetry
- Consult GI
- hgb 6.5-->7.1-->6.5-transfused 1 unit PRBC-->7.5-->8.1-->8.0-->7.9
- monitor H/H, await next study
- IV Protonix BID
- orthostatic VS
Fe sat 5%, Ferritin 6.6, ordered IV Fe
with significant microcytic hypochromic indices, GI bleeding has a significant component of subacute. Agree with IV Fe infusion
GI planning to do EGD/[place] on Tuesday, pt now on clear liquid diet
#essential hypertension
- continue metoprolol
#hyperlipidemia
- continue atorvastatin
#cognitive disorder
- continue escitalopram, pt lives at [facility] unit
#atrial fibrillation
- hold Eliquis in setting of GI bleed
- continue metoprolol
#ASCVD
s/p cardiac stents
call placed and reviewed with sonJuan 06/16
Code status: Full code
DVT prophylaxis: SCDs
Anticipated Discharge: 24 - 48 hours
Subjective/Interval History
-
Date of Service: June 17, 2024
Awake, alert, conversant. Asking about food
Objective Data
-
Labs:
Laboratory Results
06/17/24
06:53
WBC 11.6 H
Hgb 7.9 L
Hct 26.4 L
Plt Count 367
Vital Signs:
Vital Signs
Temp Pulse Resp BP Pulse Ox
98.1 F 72 16 107/47 94
06/17/24 07:00 06/17/24 08:03 06/17/24 07:00 06/17/24 08:03 06/17/24 07:00
I&O
06/16/24 06/17/24 06/18/24
06:59 06:59 06:59
Intake Total 480 / 480 900 / 900
Balance 480 / 480 900 / 900
Review of Systems
-
History Source: Patient and Coordinated Provider
Constitutional: Denies Fever
EENT: Reports No Symptoms Reported
Respiratory: Reports No Symptoms
Cardiac: Reports No Symptoms; Denies Chest Pain
Abdomen/GI: Reports Black Stools (pt is not aware of having); Denies Abdominal Pain, Nausea, Vomiting or Bloody Stools (pt is not aware of having)
Physical Exam
-
General: Well Developed, Well Nourished and No Apparent Distress
HEENT: Normocephalic, Atraumatic and Moist Mucous Membranes
Respiratory: Clear to Auscultation; Negative Wheezes, Rales or Rhonchi
Cardiac: Regular Rhythm and S1/S2
GI: Soft, Nontender and Nondistended
Musculoskeletal: No Clubbing, No Cyanosis and No Edema
Skin: Warm and Dry
[2024-06-17] MEDS: CITROMA 300 ML PO (09:57)
[2024-06-17 11:00] VITALS: BP 135/71
[2024-06-17 15:00] VITALS: BP 151/75
[2024-06-17] MEDS: MIRALAX 51 GRAMS PO ×3 (16:18→21:29)
[2024-06-17] MEDS: FERRLECIT 110 MG IV (16:18)
[2024-06-17 19:05] VITALS: BP 143/72
[2024-06-17] MEDS: LEXAPRO 15 MG PO (21:28)
[2024-06-17] MEDS: LIPITOR 40 MG PO (21:29)
[2024-06-17 22:50] VITALS: BP 151/75
[2024-06-18] VITALS (8 sets, daily range): BP systolic 99–134; BP diastolic 53–76; BMI 24.5
[2024-06-18 08:32] LABS: Hematocrit 26.8 % (39.0-52.0); Hemoglobin 8.2 g/dL (13.0-18.0); Mean Corp Hgb Conc. 30.6 g/dL (33.0-37.0); Mean Corpuscular Hgb 24.1 pg (27.0-31.0); Mean Corpuscular Volume 78.8 fL (80.0-94.0); Mean Platelet Volume 11.1 fL (7.4-10.4); Platelet Count 367 10^3/uL (130-400); Red Cell Dist. Width 19.3 % (11.5-14.5); White Blood Cell Count 11.1 10^3/uL (4.8-10.8)
[2024-06-18] MEDS: MIRALAX PO (08:52)
[2024-06-18] MEDS: PROTONIX IV 40 MG IV ×2 (08:52→20:28)
[2024-06-18] MEDS: NSS (PRESERVATIVE FREE) 10 ML IV ×2 (08:53→20:27)
[2024-06-18] MEDS: TOPROL XL 25 MG PO (08:53)
--- NOTE | 2024-06-18 09:09 | W.PN.HOSP.TC ---
Today's Communication/Plan
-
For EGD and colonoscopy today
Assessment / Plan
Assessment / Plan
# Iron deficiency anemia with heme positive stool
Hemoglobin stable at 8.2 today, status post 1 unit packed red blood cells/06/05, hemoglobin 6.5 upon admission
Currently on IV iron, would recommend oral iron upon discharge
Continue IV Protonix, for EGD and colonoscopy today
Monitor hemoglobin
#essential hypertension
- continue metoprolol
#hyperlipidemia
- continue atorvastatin
#cognitive disorder
- continue escitalopram, pt lives at [facility]
#atrial fibrillation
- hold Eliquis in setting of GI bleed
- continue metoprolol
#ASCVD
s/p cardiac stents
DVT prophylaxis�SCDs
Full code
Total time spent to see the patient on the floor, examine the patient, review data and lab results, discuss treatment plan with patient, nursing staff around 36 minutes.
Physical Exam
General: No acute distress
HEENT: Normocephalic, Atraumatic, EOMI, MMM
Respiratory: Clear to Auscultation bilaterally
Cardiac: Normal S1/S2, Regular Rate and Rhythm
GI: Soft, Nontender, Nondistended, Normal Bowel Sounds
Extremities: No Clubbing, Cyanosis, or Edema
Neuro: Nonfocal/Grossly Intact
Psych: Calm, Cooperative
Derm: No Visible lesions
Anticipated Discharge: Within 24 hours
Subjective/Interval History
-
Date of Service: June 18, 2024
Patient denies black or bloody stools. No chest pain, no shortness of breath. No fever, no vomiting.
Objective Data
-
Labs:
Laboratory Results
06/18/24
07:32
WBC 11.1 H
Hgb 8.2 L
Hct 26.8 L
Plt Count 367
Vital Signs:
Vital Signs
Temp Pulse Resp BP Pulse Ox
97.5 F 66 16 113/68 95
06/18/24 07:30 06/18/24 08:53 06/18/24 07:30 06/18/24 08:53 06/18/24 07:30
I&O
06/17/24 06/18/24 06/19/24
06:59 06:59 06:59
Intake Total 900 / 900 2280 / 2280
Balance 900 / 900 2280 / 2280
[2024-06-18 11:49] LABS: 5' Nucleotidase Results 14 U/L (0-15)
--- NOTE | 2024-06-18 14:55 | PN.CDI ---
CDI
- -
CDI:
Physician Documentation Request
Admit Date: 06/14/24 22:06
Dear Doctor Do,
Please review the following and provide your response in the progress notes.
Clinical Indicators:
Pt admitted with GI bleed/ chronic Iron Deficiency Anemia
Pt with a HX of afib on Eliquis
Documented throughout the record, ' #atrial fibrillation hold Eliquis in setting of GI bleed...'
Please clarify the relationship between these conditions:
Yes, __GI bleed /Anemia_ is related to/associated with/exacerbated by Eliquis use ___.
No, GI bleed/Anemia___ is not related to/associated with/exacerbated by Eliquis use ___ but it is due to ___. (Please specify)
Unable to determine
Use of terms such as suspected, likely, concern for, or probable (associated with a specific diagnosis that is being evaluated, monitored, or treated as if it exists) are acceptable and can be coded in the inpatient setting, when documented at the
time of discharge.
Thank you,
Temi Atkins RN
CDI Specialist
[facility]
Please use your independent medical judgment in providing your response.
[2024-06-18] MEDS: FERRLECIT IV (16:05)
[2024-06-18] MEDS: ELIQUIS 5 MG PO (20:27)
[2024-06-18] MEDS: LIPITOR 40 MG PO (23:32)
[2024-06-18] MEDS: LEXAPRO 15 MG PO (23:32)
[2024-06-19 03:23] VITALS: BP 142/70
[2024-06-19 07:00] VITALS: BP 118/70
[2024-06-19 07:44] LABS: Hematocrit 26.5 % (39.0-52.0); Mean Corp Hgb Conc. 30.2 g/dL (33.0-37.0); Mean Corpuscular Hgb 24.3 pg (27.0-31.0); Mean Corpuscular Volume 80.5 fL (80.0-94.0); Mean Platelet Volume 11.1 fL (7.4-10.4); Platelet Count 356 10^3/uL (130-400); Red Blood Cell Count 3.29 10^6/uL (4.70-6.10); Red Cell Dist. Width 20.7 % (11.5-14.5); White Blood Cell Count 11.3 10^3/uL (4.8-10.8)
[2024-06-19 08:01] LABS: Blood Urea Nitrogen 23 mg/dl (9-20); Calcium 8.4 mg/dl (8.4-10.2); Carbon Dioxide 24 mmol/L (22-30); Chloride 108 mmol/L (98-107); Estimated Creatinine Clearance 63 ml/min; Glucose 117 mg/dl (70-99); Magnesium 2.1 mg/dl (1.6-2.3); Potassium 4.1 mmol/L (3.5-5.1); Sodium 138 mmol/L (135-145); eGFR > 60.00
--- NOTE | 2024-06-19 09:15 | W.PN.HOSP.TC ---
Today's Communication/Plan
-
Discharge today
Assessment / Plan
Assessment / Plan
# Iron deficiency anemia with heme positive stool
# Subacute upper GI bleed, exacerbated by Eliquis use
Hemoglobin stable at 8.0 today, status post 1 unit packed red blood cells/06/05, hemoglobin 6.5 upon admission
Currently on Protonix, status post IV iron
Appreciate GI input, 06/18 EGD and colonoscopy showed 2 recently bleeding angioectasias in the duodenum, treated with monopolar probe
Cleared by GI to resume Eliquis, which was resumed 4/ PM
Hemoglobin remained stable after resuming Eliquis, medically stable for discharge
Will discharge on ferrous sulfate to be taken with vitamin C for absorption
Follow-up with PCP in 1 week
#essential hypertension
- continue metoprolol
#hyperlipidemia
- continue atorvastatin
# Dementia
- continue escitalopram, pt moving into [facility]
#atrial fibrillation
- continue metoprolol
- Cleared by GI to resume Eliquis, which was resumed 4 PM
- Follow-up with your usual seal mixing operator in the office in 2-3 weeks
#ASCVD
s/p cardiac stents
DVT prophylaxis�eliquis
Full code
Updated son and daughter on phone 06/19
Physical Exam
General: No acute distress
HEENT: Normocephalic, Atraumatic, EOMI, MMM
Respiratory: Clear to Auscultation bilaterally
Cardiac: Normal S1/S2, Regular Rate and Rhythm
GI: Soft, Nontender, Nondistended, Normal Bowel Sounds
Extremities: No Clubbing, Cyanosis, or Edema
Neuro: Pleasantly confused
Psych: Calm, Cooperative
Anticipated Discharge: Today
Subjective/Interval History
-
Date of Service: June 19, 2024
Patient denies chest pain, denies shortness of breath. No lightheadedness or dizziness. No fever, no vomiting.
Objective Data
-
Labs:
Laboratory Results
06/19/24
07:09
WBC 11.3 H
Hgb 8.0 L
Hct 26.5 L
Plt Count 356
Sodium 138
Potassium 4.1
Chloride 108 H
Carbon Dioxide 24
BUN 23 H
Creatinine 0.8
Glucose 117 H
Calcium 8.4
Vital Signs:
Vital Signs
Temp Pulse Resp BP Pulse Ox
98.2 F 63 16 118/70 94
06/19/24 07:00 06/19/24 07:00 06/19/24 07:00 06/19/24 07:00 06/19/24 07:00
I&O
06/18/24 06/19/24 06/20/24
06:59 06:59 06:59
Intake Total 2280 / 2280 1010 / 1010
Balance 2280 / 2280 1010 / 1010
[2024-06-19] MEDS: TOPROL XL 25 MG PO (10:33)
[2024-06-19] MEDS: ELIQUIS 5 MG PO (10:34)
[2024-06-19] MEDS: PROTONIX IV 40 MG IV (10:34)
[2024-06-19] MEDS: MIRALAX 17 GRAMS PO (10:34)
[2024-06-19] MEDS: NSS (PRESERVATIVE FREE) 10 ML IV (10:34)
[2024-06-19 11:09] VITALS: BP 136/71
[2024-06-19 12:53] VITALS: BP 106/43; PULSE 77
--- NOTE | 2024-06-19 14:20 | CM ---
Addendum entered by Meredith hCavez 06/19/24 14:39:
Plan: back to [facility]
Report# [phone]

Addendum entered by Meredith Chavez 06/19/24 14:25:
Per nurse patient discharge lounge. Blair, Nursing from [facility] spoke with ARNOL that patient is being moved to [facility]. Patient daughter is making arrangements for transfer to Memory Care. Patient to transfer to [facility] Per Rossy who
states she just learned from daughter of discharge. Patient daughter to transport at 3pm. CM will call patient daughter to review IMM form. Please fax continuum of care to [facility].
Original Note:
CM called to [facility] left . CM spoke with nursing who was unable to give report. Awaiting confirmation of plan.
== END 2024-06-19 13:48 | disposition home or self-care (01) | DRG 378 ==
LOC: 2 NORTH 22:06
PROVIDERS: Internal Medicine; Nurse Practitioner Family; Student in an Organized Health Care Education/Training Program; ADMITTING PHYSICIAN Hospitalist; ATTENDING PHYSICIAN Family Medicine; CONSULT PHYSICIAN Internal Medicine; EMERGENCY PHYSICIAN Emergency Medicine; FAMILY PHYSICIAN Hospitalist
PROC: 30233N1 Transfusion of Nonautologous Red Blood Cells into Peripheral Vein, Percutaneous Approach (ICD-10-PCS; 2024-06-15)
PROC: 0W3P8ZZ Control Bleeding in Gastrointestinal Tract, Via Natural or Artificial Opening Endoscopic (ICD-10-PCS; 2024-06-18)
PROC: 0DJD8ZZ Inspection of Lower Intestinal Tract, Via Natural or Artificial Opening Endoscopic (ICD-10-PCS; 2024-06-18)
DX: K31.811 Angiodysplasia of stomach and duodenum with bleeding (principal); D68.32 Hemorrhagic disorder due to extrinsic circulating anticoagulants; E78.00 Pure hypercholesterolemia, unspecified; I48.0 Paroxysmal atrial fibrillation; I25.10 Atherosclerotic heart disease of native coronary artery without angina pectoris; I10 Essential (primary) hypertension; D50.0 Iron deficiency anemia secondary to blood loss (chronic); K57.30 Diverticulosis of large intestine without perforation or abscess without bleeding; K64.8 Other hemorrhoids; Z88.2 Allergy status to sulfonamides; Z82.0 Family history of epilepsy and other diseases of the nervous system; Z95.5 Presence of coronary angioplasty implant and graft; Z79.01 Long term (current) use of anticoagulants; F03.90 Unspecified dementia, unspecified severity, without behavioral disturbance, psychotic disturbance, mood disturbance, and anxiety; K31.7 Polyp of stomach and duodenum; K44.9 Diaphragmatic hernia without obstruction or gangrene; Z79.899 Other long term (current) drug therapy; Z82.49 Family history of ischemic heart disease and other diseases of the circulatory system; Z95.1 Presence of aortocoronary bypass graft
CPT/HCPCS: 80048; 80053; 82728; 82977; 83540; 83550; 83735; 83915; 84078; 85014; 85018; 85025; 85027; 86850; 86900; 86901; 86920; 93005; 96374; 97162; 99291; J2916; P9016

== ENCOUNTER 2024-07-04 14:48 | Emergency (ER) | payer MEDICARE, SELFPAY ==
[2024-07-04] VITALS (10 sets, daily range): BP systolic 104–170; BP diastolic 56–86; PULSE 59–63
[2024-07-04 15:39] LABS: ALT (SGPT) 22 U/L (0-50); AST (SGOT) 26 U/L (17-59); Albumin 3.9 g/dl (3.5-5.0); Alkaline Phosphatase 186 U/L (38-126); Blood Urea Nitrogen 19 mg/dl (9-20); Calcium 8.5 mg/dl (8.4-10.2); Carbon Dioxide 25 mmol/L (22-30); Chloride 104 mmol/L (98-107); Glucose 143 mg/dl (70-99); Potassium 4.6 mmol/L (3.5-5.1); Sodium 139 mmol/L (135-145); Total Bilirubin 0.7 mg/dl (0.2-1.3); Total Protein 6.5 g/dl (6.3-8.2); eGFR > 60.00
[2024-07-04 15:43] LABS: % Basophils 0.6 % (0-2); % Eosinophils 3.4 % (0-6); % Immature Granulocytes 0.3 % (0-0.5); % Lymphocytes 24.2 % (20.5-51.1); % Monocytes 7.6 % (1.7-9.3); % Neutrophils 63.9 % (42.2-75.2); Absolute Basophils 0.1 10^3/uL (0-0.2); Absolute Eosinophils 0.4 10^3/uL (0-0.7); Absolute Lymphocytes 2.9 10^3/uL (1.2-3.4); Absolute Monocytes 0.9 10^3/uL (0.1-0.6); Absolute Neutrophils 7.5 10^3/uL (1.4-6.5); Hematocrit 36.1 % (39.0-52.0); Hemoglobin 10.7 g/dL (13.0-18.0); Mean Corp Hgb Conc. 29.6 g/dL (33.0-37.0); Mean Corpuscular Hgb 25.4 pg (27.0-31.0); Mean Corpuscular Volume 85.7 fL (80.0-94.0); Mean Platelet Volume 10.6 fL (7.4-10.4); Nucleated Red Blood Cells % 0 % (-); Platelet Count 355 10^3/uL (130-400); Red Blood Cell Count 4.21 10^6/uL (4.70-6.10); White Blood Cell Count 11.8 10^3/uL (4.8-10.8)
[2024-07-04 16:10] LABS: Anisocytosis 1+; Normal RBC Morphology No
[2024-07-04 16:11] LABS: Macrocytosis 2+; Polychromasia 1+
[2024-07-04 16:12] LABS: Poikilocytosis Slight
[2024-07-04 16:13] LABS: Ovalocytes 1+
--- NOTE | 2024-07-04 16:39 | ED.GENMED ---
History of Present Illness
General
Chief Complaint: Blood Pressure Problem
Source: patient
Exam Limitations: none
Time Seen by Provider: 07/04/24 16:19
History of Present Illness
History of Present Illness:
79-year-old male presents from [facility] via EMS as blood pressure was low at the facility. Patient has history of dementia and provides a limited history but he offers no complaints of pain to his chest abdomen head. He denies nausea or
shortness of breath. He states he feels pretty good.
Past History
Past History
ED Past Medical History: Arrthythmia, CAD, HTN and Hypercholesterolemia
ED Past Surgical History: Cardiac (CABG)
Social History
Tobacco: Non-smoker
Alcohol: None
Drug: None
Living: residential
Phy Exam
Physical Exam
Physical Exam:
General: Well-appearing nontoxic male no acute respiratory distress
HEENT: Normocephalic atraumatic
Heart: Regular rate and rhythm
Lungs: Clear no wheeze
Abdomen is soft nontender nondistended
Extremities: No cyanosis or edema
Skin is warm no rash
Course
Orders/Labs/Results
Orders:
Orders
07/04/24 15:15
CBC/With Diff [Complete Blood Count/With Diff] Urgent
Comprehensive Metabolic Panel Urgent
07/04/24 17:10
Orthostatic VS- Treatment ONCE
Abnormal Lab Results
07/04/24
15:15
WBC 11.8 H 10^3/uL
(4.8-10.8)
RBC 4.21 L 10^6/uL
(4.70-6.10)
Hgb 10.7 L g/dL
(13.0-18.0)
Hct 36.1 L %
(39.0-52.0)
MCH 25.4 L pg
(27.0-31.0)
MCHC 29.6 L g/dL
(33.0-37.0)
RDW 26.0 H %
(11.5-14.5)
MPV 10.6 H fL
(7.4-10.4)
Absolute Neuts (auto) 7.5 H 10^3/uL
(1.4-6.5)
Absolute Monos (auto) 0.9 H 10^3/uL
(0.1-0.6)
Glucose 143 H mg/dl
(70-99)
Alkaline Phosphatase 186 H U/L
(38-126)
07/04/24 15:15
07/04/24 15:15
Vital Signs
Initial and Last Documented VS:
Initial Vital Signs
Temp Pulse Resp BP Pulse Ox
98 F 66 16 156/80 96
07/04/24 15:01 07/04/24 15:01 07/04/24 15:01 07/04/24 15:01 07/04/24 15:01
Last Documented Vital Signs
Temp Pulse Resp BP Pulse Ox
98 F 62 14 135/69 94
07/04/24 15:01 07/04/24 16:45 07/04/24 16:45 07/04/24 17:00 07/04/24 16:45
MDM/Problems Addressed
Differential Diagnosis Includes:
Patient was sent here as he had low blood pressure at facility however his blood pressures have been normal here. He has no complaints. Labs reviewed without significant finding. Patient's white blood cell count is 11.8 but is always slightly
elevated
He had a recent stay for GI bleeding. Hemoglobin today is 10.7 which is increased from prior admission
*Critical Care Note
Total Time (30-74mins, 75-104mins- exclusive of procedures): Not Applicable
Update Note
Update Note:
Patient has not had any low blood pressure readings here orthostatic vital signs are stable without any symptoms. Labs reviewed without significant findings. At this time no indication for admission. Will discharge back to facility
ED Attending Note
-
Portions of this chart may have been created with voice recognition software.� Occasional wrong word or��sound alike� substitutions may have occurred due to the inherent limitations of voice recognition software.
Discharge Plan
Departure
Patient Disposition: Home (Routine Discharge)
Date of Disposition: 07/04/24
Time of Disposition: 18:38
Patient with high blood pressure during this ER visit?: No
Discharge Problem:
Blood pressure check
Instructions: BLOOD PRESSURE
Prescriptions:
No Action
atorvastatin 40 mg Tablet
40 mg PO HS
acetaminophen 325 mg Tablet
650 mg PO Q4HPRN MDD 3000mg PRN (Reason: mild pain)
omeprazole 20 mg Capsule,Delayed Release(Dr/Ec)
20 mg PO DAILY
metoprolol succinate 25 mg Tablet Extended Release 24 Hr
25 mg PO DAILY
escitalopram oxalate 10 mg Tablet
15 mg PO HS
Eliquis 5 mg Tablet
5 mg PO BID
ferrous sulfate 325 mg (65 mg iron) tablet
325 mg PO HS Qty: 30 0RF
ascorbic acid (vitamin C) [Vitamin C] 500 mg tablet
500 mg PO HS Qty: 30 0RF
Referrals:
UNKNOWN - PT DOES,NOT KNOW [Unknown Provider] -
Activity Restrictions/Additional Instructions:
Patient was brought here for evaluation of low blood pressure reading. There was no low blood pressure readings in the hospital. His orthostatic vital signs are stable he is asymptomatic. Please have her return if needed
Interventions
Interventions:
*Risk Screen - Suicide Last Done: 07/04/24 15:01
*General Assessment Last Done: 07/04/24 17:24
*Neglect/Abuse Screening Last Done: 07/04/24 15:01
*ED- Fall Risk Assessment Last Done: 07/04/24 17:24
*ED COVID-19 Vaccine History Last Done: 07/04/24 17:24
ED- Cardiac Assessment Last Done: 07/04/24 17:24
ED- Neurological Assessment Last Done: 07/04/24 17:24
ED- Pulmonary Assessment Last Done: 07/04/24 17:24
Discharge Date and Time
Print Language: SWEDISH
== END 2024-07-04 20:57 | disposition home or self-care (01) ==
LOC: EMR 14:48
PROVIDERS: Emergency Medicine; EMERGENCY PHYSICIAN Emergency Medicine; FAMILY PHYSICIAN Hospitalist
DX: Z01.30 Encounter for examination of blood pressure without abnormal findings (principal); E78.00 Pure hypercholesterolemia, unspecified; I10 Essential (primary) hypertension; I25.10 Atherosclerotic heart disease of native coronary artery without angina pectoris; F03.90 Unspecified dementia, unspecified severity, without behavioral disturbance, psychotic disturbance, mood disturbance, and anxiety; Z95.1 Presence of aortocoronary bypass graft
CPT/HCPCS: 99283; 80053; 85025

== ENCOUNTER → 2024-08-02 11:59 | Outpatient (REF) | payer MEDICARE, SELFPAY ==
[2024-08-02 13:01] LABS: % Basophils 0.8 % (0-2); % Eosinophils 4.4 % (0-6); % Immature Granulocytes 0.6 % (0-0.5); % Lymphocytes 18.7 % (20.5-51.1); % Monocytes 10.4 % (1.7-9.3); % Neutrophils 65.1 % (42.2-75.2); Absolute Basophils 0.1 10^3/uL (0-0.2); Absolute Eosinophils 0.5 10^3/uL (0-0.7); Absolute Immature Granulocytes 0.1 10^3/uL (0-0.05); Absolute Monocytes 1.1 10^3/uL (0.1-0.6); Absolute Neutrophils 6.9 10^3/uL (1.4-6.5); Hematocrit 37.2 % (39.0-52.0); Hemoglobin 11.3 g/dL (13.0-18.0); Mean Corp Hgb Conc. 30.4 g/dL (33.0-37.0); Mean Platelet Volume 11.1 fL (7.4-10.4); Nucleated Red Blood Cells % 0 % (-); Platelet Count 236 10^3/uL (130-400); Red Blood Cell Count 4.18 10^6/uL (4.70-6.10); Red Cell Dist. Width 23.7 % (11.5-14.5); White Blood Cell Count 10.6 10^3/uL (4.8-10.8)
[2024-08-02 14:43] LABS: Anisocytosis 1+; Hypochromasia Slight; Microcytosis 1+; Normal RBC Morphology No
[2024-08-02 14:44] LABS: Tear Drop Red Blood Cells Slight
== END ==
LOC: OLABMERCHI 11:59
PROVIDERS: ATTENDING PHYSICIAN Nurse Practitioner
DX: D50.9 Iron deficiency anemia, unspecified (principal)
CPT/HCPCS: 36415; 85025

== ENCOUNTER → 2024-09-13 10:07 | Outpatient (REF) | payer MEDICARE, SELFPAY ==
[2024-09-13 12:11] LABS: Blood Urea Nitrogen 13 mg/dl (9-20); Calcium 8.6 mg/dl (8.4-10.2); Carbon Dioxide 26 mmol/L (22-30); Chloride 109 mmol/L (98-107); Glucose 88 mg/dl (70-99); HDL Cholesterol 29 mg/dl; LDL Cholesterol, Calculated 70 mg/dl; Potassium 4.0 mmol/L (3.5-5.1); Sodium 140 mmol/L (135-145); Very Low Density Lipoprotein 34 mg/dl (0-30); eGFR > 60.00
== END ==
LOC: OLABMERCHI 10:07
PROVIDERS: ATTENDING PHYSICIAN Hospitalist
DX: E78.9 Disorder of lipoprotein metabolism, unspecified (principal); I10 Essential (primary) hypertension
CPT/HCPCS: 36415; 80048; 80061